=== PATIENT | male | born 1965 ===

== ENCOUNTER 2021-06-27 14:59 | Inpatient (IN) | payer MEDICAID, OTHER ==
[~2021-06-27] VITALS: Ht 188 cm; Wt 176.0 kg
[2021-06-27] MEDS ORDERED: FUROSEMIDE 40 MG/4 ML VIAL IV ONE (15:30)
[2021-06-27 16:02] LABS: Basophils # (auto) 0.1 10 ^3/uL (0-0.2); Basophils % (auto) 0.8 % (0.0-2.0); Eosinophils # (auto) 0.2 10 ^3/uL (0-0.8); Eosinophils % (auto) 1.4 % (0.0-7.0); Hematocrit 43.6 % (41.0-53.0); Hemoglobin 13.8 g/dL (13.5-17.5); Lymphocytes # (auto) 1.5 10 ^3/uL (0.4-5.4); Lymphocytes % (auto) 13.4 % (10.0-50.0); Mean Corpuscular Hemoglobin 29.6 pg (28.0-32.0); Mean Corpuscular Hgb Conc. 31.7 g/dL (32.0-36.0); Mean Corpuscular Volume 93.4 fL (80.0-100.0); Neutrophils # (auto) 8.3 10 ^3/uL (1.6-8.6); Neutrophils % (auto) 75.4 % (37.0-80.0); Nucleated Red Blood Cells % 0.3 %; Red Blood Cells 4.67 10^6/uL (4.5-5.90)
[2021-06-27 16:34] LABS: Albumin 2.6 g/dL (3.4-5.0); Potassium 4.5 mmol/L (3.5-5.1)
[2021-06-27 16:37] LABS: BUN/Creatinine Ratio 17.1; Bilirubin, Total 0.5 mg/dL (0.2-1.0); Total Protein 7.8 g/dL (6.4-8.2)
[2021-06-27 16:44] LABS: INR 1.2 (0.9-1.15); Partial Thromboplastin Time 25.7 sec (23.6-33.0)
[2021-06-27] MEDS ORDERED: ENOXAPARIN SOD 150 MG/1 ML SYRINGE SC ONE (17:00)
[2021-06-27 17:21] LABS: Urine Bacteria NONE SEEN /hpf (None Seen); Urine Blood Negative /uL (Negative); Urine Hyaline Cast FEW /lpf (0 - 2); Urine Mucus FEW (None Seen); Urine Specific Gravity 1.009 (1.001-1.035); Urine WBC <1 /hpf (0 - 3)
[2021-06-27] MEDS ORDERED: NITROGLYCERIN 0.4 MG SL TAB SL PRN (21:15)
[2021-06-27] MEDS ORDERED: ONDANSETRON HCL 4 MG/2 ML VIAL IV PRN (21:15)
[2021-06-27] MEDS ORDERED: TEMAZEPAM 15 MG CAP PO PRN (21:15)
[2021-06-27] MEDS ORDERED: MORPHINE SULFATE INJECTION 2 MG/ML SYRG IV PRN (21:15)
[2021-06-27] MEDS: ATORVASTATIN 20 MG TAB PO SCH (23:08)
[2021-06-28 03:23] VITALS: BP 128/89
[2021-06-28 05:00] VITALS: BP 98/50
[2021-06-28] MEDS: FUROSEMIDE 20 MG/2 ML VIAL IV SCH ×2 (05:42→18:22)
[2021-06-28 08:38] VITALS: BP 90/50
[2021-06-28 09:38] LABS: Basophils # (auto) 0.1 10 ^3/uL (0-0.2); Basophils % (auto) 0.9 % (0.0-2.0); Eosinophils # (auto) 0.2 10 ^3/uL (0-0.8); Eosinophils % (auto) 2.4 % (0.0-7.0); Hematocrit 41.7 % (41.0-53.0); Hemoglobin 13.5 g/dL (13.5-17.5); Lymphocytes # (auto) 1.1 10 ^3/uL (0.4-5.4); Lymphocytes % (auto) 11.2 % (10.0-50.0); Mean Corpuscular Hemoglobin 30.5 pg (28.0-32.0); Mean Corpuscular Hgb Conc. 32.4 g/dL (32.0-36.0); Mean Corpuscular Volume 94.1 fL (80.0-100.0); Monocytes # (auto) 0.7 10 ^3/uL (0-1.3); Monocytes % (auto) 7.7 % (0.0-12.0); Neutrophils # (auto) 7.3 10 ^3/uL (1.6-8.6); Neutrophils % (auto) 77.8 % (37.0-80.0); Nucleated Red Blood Cells % 0.1 %; Red Blood Cells 4.43 10^6/uL (4.5-5.90); Red Cell Distribution Width 17.5 % (11.8-14.3); White Blood Cell 9.4 10^3/uL (4.4-10.8)
[2021-06-28 09:50] LABS: Calcium 8.1 mg/dL (8.5-10.1); Potassium 4.3 mmol/L (3.5-5.1)
[2021-06-28 09:52] LABS: BUN/Creatinine Ratio 19.7
[2021-06-28] MEDS ORDERED: LISINOPRIL 10 MG TAB PO SCH (10:00)
[2021-06-28] MEDS ORDERED: ENOXAPARIN SOD 40 MG/0.4 ML SYRINGE SC SCH (10:00)
[2021-06-28 10:16] LABS: Cholesterol 134 mg/dL (< 200); HDL Cholesterol 25 mg/dL (40-59); LDL Cholesterol 90 mg/dL (< 100); Triglycerides 124 mg/dL (< 150)
[2021-06-28] MEDS: PANTOPRAZOLE 40 MG TAB PO SCH (10:27)
[2021-06-28] MEDS: ASPirin 81 mg TAB PO SCH (10:27)
[2021-06-28] MEDS: CARVEDILOL 3.125 MG TAB PO SCH ×2 (10:49→21:22)
[2021-06-28] MEDS: LISINOPRIL 5 MG TAB PO SCH (10:49)
[2021-06-28 12:58] VITALS: BP 119/75
[2021-06-28] MEDS ORDERED: IOHEXOL 350 MG/ML 100ML IJ ONE (15:06)
[2021-06-28 17:00] VITALS: BP 107/51
[2021-06-28] MEDS: ACETAMINOPHEN 325 MG TAB PO PRN (21:21)
[2021-06-28] MEDS: ATORVASTATIN 20 MG TAB PO SCH (21:21)
[2021-06-28 22:00] VITALS: BP 93/54
[2021-06-28] MEDS ORDERED: HEPARIN SODIUM (PORCINE) 5000 UNITS/ML 1ML VIAL IV ONE (23:00)
[2021-06-28] MEDS ORDERED: HEPARIN DRIP/D5W 100UNITS/ML 250 ML IV SCH (23:00)
[2021-06-28] MEDS ORDERED: HEPARIN DRIP/D5W 100UNITS/ML 250 ML IV ONE (23:18)
[2021-06-29 02:00] VITALS: BP 93/54
[2021-06-29 05:00] VITALS: BP 117/51
[2021-06-29] MEDS: FUROSEMIDE 20 MG/2 ML VIAL IV SCH ×2 (05:40→17:46)
[2021-06-29] MEDS: ACETAMINOPHEN 325 MG TAB PO PRN ×2 (05:41→20:49)
[2021-06-29 08:11] LABS: Basophils # (auto) 0 10 ^3/uL (0-0.2); Basophils % (auto) 0.5 % (0.0-2.0); Eosinophils # (auto) 0.1 10 ^3/uL (0-0.8); Eosinophils % (auto) 1.4 % (0.0-7.0); Hematocrit 43.1 % (41.0-53.0); Hemoglobin 13.7 g/dL (13.5-17.5); Lymphocytes # (auto) 0.8 10 ^3/uL (0.4-5.4); Lymphocytes % (auto) 9.5 % (10.0-50.0); Mean Corpuscular Hemoglobin 30.2 pg (28.0-32.0); Mean Corpuscular Hgb Conc. 31.9 g/dL (32.0-36.0); Mean Corpuscular Volume 94.7 fL (80.0-100.0); Monocytes # (auto) 0.5 10 ^3/uL (0-1.3); Monocytes % (auto) 6.9 % (0.0-12.0); Neutrophils # (auto) 6.5 10 ^3/uL (1.6-8.6); Neutrophils % (auto) 81.7 % (37.0-80.0); Nucleated Red Blood Cells % 0.1 %; Red Blood Cells 4.55 10^6/uL (4.5-5.90); Red Cell Distribution Width 16.9 % (11.8-14.3)
[2021-06-29 08:27] LABS: INR 1.16 (0.9-1.15)
[2021-06-29 08:35] LABS: BUN/Creatinine Ratio 21.2; Potassium 4.8 mmol/L (3.5-5.1)
[2021-06-29] MEDS: HEPARIN DRIP/D5W 100UNITS/ML 250 ML IV SCH ×4 (08:58→22:49)
[2021-06-29 09:00] VITALS: BP 102/63
[2021-06-29] MEDS: CHOLECALCIFEROL (VITD3) 2,000 UNIT CAP/TAB PO SCH (10:31)
[2021-06-29] MEDS: ASPirin 81 mg TAB PO SCH (10:31)
[2021-06-29] MEDS: PANTOPRAZOLE 40 MG TAB PO SCH (10:32)
[2021-06-29] MEDS: CARVEDILOL 3.125 MG TAB PO SCH ×2 (10:33→21:57)
[2021-06-29] MEDS: LISINOPRIL 5 MG TAB PO SCH (10:33)
[2021-06-29 13:00] VITALS: BP 96/55
[2021-06-29] MEDS ORDERED: levoFLOXacin 750MG 150 ML IV ONE (14:15)
[2021-06-29 16:07] LABS: INR 1.18 (0.9-1.15); Partial Thromboplastin Time 36.2 sec (23.6-33.0)
[2021-06-29] MEDS ORDERED: HEPARIN DRIP/D5W 100UNITS/ML 250 ML IV SCH (16:30)
[2021-06-29 17:00] VITALS: BP 110/57
[2021-06-29] MEDS: ATORVASTATIN 20 MG TAB PO SCH (21:57)
[2021-06-29 22:00] VITALS: BP 96/43
[2021-06-29 23:53] LABS: INR 1.2 (0.9-1.15); Partial Thromboplastin Time 39.9 sec (23.6-33.0)
[2021-06-30 04:56] VITALS: BP 95/52
[2021-06-30] MEDS: FUROSEMIDE 20 MG/2 ML VIAL IV SCH ×2 (05:54→17:13)
[2021-06-30 07:47] LABS: INR 1.18 (0.9-1.15); Partial Thromboplastin Time 48.1 sec (23.6-33.0)
[2021-06-30] MEDS: PANTOPRAZOLE 40 MG TAB PO SCH (08:58)
[2021-06-30] MEDS: ASPirin 81 mg TAB PO SCH (08:58)
[2021-06-30 09:00] VITALS: BP 110/69
[2021-06-30] MEDS: HEPARIN DRIP/D5W 100UNITS/ML 250 ML IV SCH (09:00)
[2021-06-30] MEDS: CHOLECALCIFEROL (VITD3) 2,000 UNIT CAP/TAB PO SCH (09:01)
[2021-06-30 09:13] LABS: Albumin 2.6 g/dL (3.4-5.0); Calcium 8.2 mg/dL (8.5-10.1); Potassium 4.8 mmol/L (3.5-5.1)
[2021-06-30] MEDS: levoFLOXacin 750MG 150 ML IV SCH (10:26)
[2021-06-30 11:42] LABS: Basophils # (auto) 0.1 10 ^3/uL (0-0.2); Basophils % (auto) 0.6 % (0.0-2.0); Eosinophils # (auto) 0.1 10 ^3/uL (0-0.8); Eosinophils % (auto) 1.2 % (0.0-7.0); Hematocrit 43.5 % (41.0-53.0); Hemoglobin 13.6 g/dL (13.5-17.5); Lymphocytes # (auto) 0.9 10 ^3/uL (0.4-5.4); Lymphocytes % (auto) 11.9 % (10.0-50.0); Mean Corpuscular Hemoglobin 29.8 pg (28.0-32.0); Mean Corpuscular Hgb Conc. 31.3 g/dL (32.0-36.0); Mean Corpuscular Volume 95.2 fL (80.0-100.0); Monocytes # (auto) 0.6 10 ^3/uL (0-1.3); Monocytes % (auto) 7.8 % (0.0-12.0); Neutrophils # (auto) 6.3 10 ^3/uL (1.6-8.6); Neutrophils % (auto) 78.5 % (37.0-80.0); Nucleated Red Blood Cells % 0.1 %; Red Blood Cells 4.57 10^6/uL (4.5-5.90); Red Cell Distribution Width 17.2 % (11.8-14.3)
[2021-06-30] MEDS: ALBUTEROL SULF 2.5 MG/0.5ML(0.5%) NEB SOLN NEB SCH ×3 (12:00→18:00)
[2021-06-30 13:00] VITALS: BP 102/62
[2021-06-30 15:12] LABS: INR 1.18 (0.9-1.15)
[2021-06-30 17:00] VITALS: BP 102/60
[2021-06-30] MEDS ORDERED: MORPHINE SULFATE 4 MG/ML SYR/VIAL IV ONE (19:30)
[2021-06-30] MEDS ORDERED: WARFARIN SODIUM 1 MG TAB PO ONE (21:15)
[2021-06-30] MEDS: ATORVASTATIN 20 MG TAB PO SCH (21:47)
[2021-06-30 22:00] VITALS: BP 115/61
[2021-07-01] VITALS (44 sets, daily range): BP systolic 89–194; BP diastolic 41–106
[2021-07-01] MEDS: ALBUTEROL SULF 2.5 MG/0.5ML(0.5%) NEB SOLN NEB SCH ×4 (00:36→18:03)
[2021-07-01] MEDS: HEPARIN DRIP/D5W 100UNITS/ML 250 ML IV SCH ×3 (02:47→15:35)
[2021-07-01] MEDS: FUROSEMIDE 20 MG/2 ML VIAL IV SCH ×2 (05:53→18:18)
[2021-07-01 06:21] LABS: Basophils # (auto) 0 10 ^3/uL (0-0.2); Basophils % (auto) 0.2 % (0.0-2.0); Eosinophils # (auto) 0 10 ^3/uL (0-0.8); Eosinophils % (auto) 0.3 % (0.0-7.0); Hematocrit 45.9 % (41.0-53.0); Hemoglobin 14.5 g/dL (13.5-17.5); Lymphocytes # (auto) 0.9 10 ^3/uL (0.4-5.4); Lymphocytes % (auto) 10.8 % (10.0-50.0); Mean Corpuscular Hemoglobin 30.6 pg (28.0-32.0); Mean Corpuscular Hgb Conc. 31.6 g/dL (32.0-36.0); Mean Corpuscular Volume 96.6 fL (80.0-100.0); Monocytes # (auto) 0.6 10 ^3/uL (0-1.3); Monocytes % (auto) 7.5 % (0.0-12.0); Neutrophils # (auto) 6.5 10 ^3/uL (1.6-8.6); Neutrophils % (auto) 81.2 % (37.0-80.0); Red Blood Cells 4.75 10^6/uL (4.5-5.90); Red Cell Distribution Width 17.1 % (11.8-14.3)
[2021-07-01 06:37] LABS: INR 1.18 (0.9-1.15)
[2021-07-01 06:38] LABS: Albumin 2.9 g/dL (3.4-5.0)
[2021-07-01] MEDS: PANTOPRAZOLE 40 MG TAB PO SCH (10:00)
[2021-07-01] MEDS: CHOLECALCIFEROL (VITD3) 2,000 UNIT CAP/TAB PO SCH (10:00)
[2021-07-01] MEDS ORDERED: FUROSEMIDE 20 MG/2 ML VIAL IV ONE (10:30)
[2021-07-01] MEDS: levoFLOXacin 750MG 150 ML IV SCH (11:16)
[2021-07-01] MEDS ORDERED: ETOMIDATE (2MG/ML) 20ML VIAL IV ONE (12:28)
[2021-07-01] MEDS ORDERED: SUCCINYLCHOLINE CHLORIDE 20 MG/ML 10ML VIAL IV ONE (12:29)
[2021-07-01] MEDS ORDERED: ROCURONIUM 10MG/ML 10ML VIAL IV ONE ×2 (12:41)
[2021-07-01 12:51] LABS: INR 1.24 (0.9-1.15); Partial Thromboplastin Time 63.8 sec (23.6-33.0)
[2021-07-01] MEDS ORDERED: DOPamine 1600MCG/ML D5W 250 ML IV ONE (13:53)
[2021-07-01] MEDS: PROPOFOL 100 ML IV SCH ×3 (15:21→19:21)
[2021-07-01] MEDS: NOREPINEPHRINE 8 MG/250ML KIT 250 ML IV SCH (15:22)
[2021-07-01] MEDS: MIDAZOLAM DRIP 50 mg/50mL 50 ML IV SCH ×2 (15:23→16:58)
[2021-07-01] MEDS: fentaNYL Drip 2500mCg/250mlNS 250 ML IV SCH (15:26)
[2021-07-01] MEDS: DOPamine 1600MCG/ML D5W 250 ML IV SCH ×2 (16:30→23:27)
[2021-07-01] MEDS ORDERED: WARFARIN SODIUM 10 MG TAB PO ONE (17:00)
[2021-07-01 17:37] LABS: INR 1.22 (0.9-1.15); Partial Thromboplastin Time 46.4 sec (23.6-33.0)
[2021-07-01] MEDS: ATORVASTATIN 20 MG TAB PO SCH (22:00)
[2021-07-02] VITALS (80 sets, daily range): BP systolic 87–139; BP diastolic 43–86
[2021-07-02] MEDS: ALBUTEROL SULF 2.5 MG/0.5ML(0.5%) NEB SOLN NEB SCH ×4 (00:35→18:23)
[2021-07-02 01:25] LABS: INR 1.31 (0.9-1.15)
[2021-07-02 04:58] LABS: Basophils # (auto) 0 10 ^3/uL (0-0.2); Basophils % (auto) 0.2 % (0.0-2.0); Eosinophils # (auto) 0 10 ^3/uL (0-0.8); Eosinophils % (auto) 0.4 % (0.0-7.0); Hematocrit 45.9 % (41.0-53.0); Hemoglobin 14.5 g/dL (13.5-17.5); Lymphocytes # (auto) 0.7 10 ^3/uL (0.4-5.4); Lymphocytes % (auto) 6.9 % (10.0-50.0); Mean Corpuscular Hemoglobin 29.7 pg (28.0-32.0); Mean Corpuscular Hgb Conc. 31.6 g/dL (32.0-36.0); Monocytes # (auto) 0.7 10 ^3/uL (0-1.3); Neutrophils # (auto) 8.4 10 ^3/uL (1.6-8.6); Neutrophils % (auto) 85.5 % (37.0-80.0); Red Blood Cells 4.88 10^6/uL (4.5-5.90); Red Cell Distribution Width 16.2 % (11.8-14.3); White Blood Cell 9.8 10^3/uL (4.4-10.8)
[2021-07-02 05:25] LABS: Albumin 2.6 g/dL (3.4-5.0); Calcium 8.5 mg/dL (8.5-10.1); Potassium 3.8 mmol/L (3.5-5.1)
[2021-07-02 05:29] LABS: BUN/Creatinine Ratio 17.5; Total Protein 7.2 g/dL (6.4-8.2)
[2021-07-02] MEDS: FUROSEMIDE 20 MG/2 ML VIAL IV SCH ×2 (06:00→18:00)
[2021-07-02] MEDS: DOPamine 1600MCG/ML D5W 250 ML IV SCH (06:24)
[2021-07-02] MEDS: HEPARIN DRIP/D5W 100UNITS/ML 250 ML IV SCH ×2 (07:35→15:33)
[2021-07-02] MEDS: CHOLECALCIFEROL (VITD3) 2,000 UNIT CAP/TAB PO SCH (09:35)
[2021-07-02] MEDS: POTASSIUM EFFERVESENT TAB 25 MEQ GT SCH (09:35)
[2021-07-02] MEDS: PANTOPRAZOLE 40 MG TAB PO SCH (09:35)
[2021-07-02] MEDS: PROPOFOL 100 ML IV SCH ×5 (09:36→17:40)
[2021-07-02] MEDS: MIDAZOLAM DRIP 50 mg/50mL 50 ML IV SCH ×3 (09:36→17:07)
[2021-07-02] MEDS ORDERED: Jevity 1.2 Cal/Fiber 1 Liter GT SCH ×2 (09:45→10:45)
[2021-07-02 10:25] LABS: INR 1.33 (0.9-1.15); Partial Thromboplastin Time 46.9 sec (23.6-33.0)
[2021-07-02 11:19] LABS: Magnesium 2.5 mg/dL (1.6-2.6); Phosphorus 1.1 mg/dL (2.5-4.90)
[2021-07-02] MEDS ORDERED: POTASSIUM PHOSPHATE 44 MEQ in D5W 5% 250 ML IV ONE (11:45)
[2021-07-02] MEDS: NOREPINEPHRINE 8 MG/250ML KIT 250 ML IV SCH (12:15)
[2021-07-02] MEDS: ACETYLCYSTEINE 10 %(100MG/ML) SOL 4ML NEB SCH ×2 (12:33→18:24)
[2021-07-02] MEDS: fentaNYL Drip 2500mCg/250mlNS 250 ML IV SCH (13:52)
[2021-07-02] MEDS: CEFEPIME 1 GM in SODIUM CHL 0.9% 50 ML IV SCH ×2 (13:55→21:31)
[2021-07-02] MEDS: ACETAMINOPHEN 325 MG TAB PO PRN (14:50)
[2021-07-02] MEDS ORDERED: WARFARIN SODIUM 10 MG TAB PO ONE (17:00)
[2021-07-02 18:58] LABS: INR 1.36 (0.9-1.15); Partial Thromboplastin Time 48.5 sec (23.6-33.0)
[2021-07-02] MEDS: ATORVASTATIN 20 MG TAB PO SCH (21:31)
[2021-07-03] VITALS (101 sets, daily range): BP systolic 59–187; BP diastolic 24–97
[2021-07-03] MEDS: PROPOFOL 100 ML IV SCH ×6 (00:03→19:50)
[2021-07-03] MEDS: HEPARIN DRIP/D5W 100UNITS/ML 250 ML IV SCH ×3 (00:27→18:11)
[2021-07-03] MEDS: ACETYLCYSTEINE 10 %(100MG/ML) SOL 4ML NEB SCH ×4 (00:30→19:51)
[2021-07-03] MEDS: ALBUTEROL SULF 2.5 MG/0.5ML(0.5%) NEB SOLN NEB SCH ×4 (00:30→19:52)
[2021-07-03] MEDS: fentaNYL Drip 2500mCg/250mlNS 250 ML IV SCH ×2 (01:31→12:42)
[2021-07-03] MEDS: DOPamine 1600MCG/ML D5W 250 ML IV SCH ×4 (03:15→15:20)
[2021-07-03] MEDS: MIDAZOLAM DRIP 50 mg/50mL 50 ML IV SCH ×5 (03:50→19:50)
[2021-07-03] MEDS: FUROSEMIDE 20 MG/2 ML VIAL IV SCH ×2 (05:29→18:16)
[2021-07-03] MEDS: CEFEPIME 1 GM in SODIUM CHL 0.9% 50 ML IV SCH ×3 (05:33→22:05)
[2021-07-03 06:17] LABS: Basophils # (auto) 0.1 10 ^3/uL (0-0.2); Basophils % (auto) 0.6 % (0.0-2.0); Eosinophils # (auto) 0 10 ^3/uL (0-0.8); Eosinophils % (auto) 0.3 % (0.0-7.0); Hematocrit 47.8 % (41.0-53.0); Hemoglobin 15.1 g/dL (13.5-17.5); Lymphocytes # (auto) 0.6 10 ^3/uL (0.4-5.4); Lymphocytes % (auto) 5.3 % (10.0-50.0); Mean Corpuscular Hemoglobin 29.7 pg (28.0-32.0); Mean Corpuscular Hgb Conc. 31.7 g/dL (32.0-36.0); Mean Corpuscular Volume 93.9 fL (80.0-100.0); Monocytes # (auto) 0.9 10 ^3/uL (0-1.3); Monocytes % (auto) 8.2 % (0.0-12.0); Neutrophils # (auto) 9.5 10 ^3/uL (1.6-8.6); Neutrophils % (auto) 85.6 % (37.0-80.0); Red Blood Cells 5.09 10^6/uL (4.5-5.90); Red Cell Distribution Width 16.9 % (11.8-14.3)
[2021-07-03 06:35] LABS: INR 1.35 (0.9-1.15); Partial Thromboplastin Time 46.7 sec (23.6-33.0)
[2021-07-03 06:39] LABS: Calcium 8.7 mg/dL (8.5-10.1); Potassium 3.5 mmol/L (3.5-5.1)
[2021-07-03 06:42] LABS: BUN/Creatinine Ratio 11.8
[2021-07-03] MEDS: POTASSIUM EFFERVESENT TAB 25 MEQ GT SCH ×2 (10:00→10:06)
[2021-07-03] MEDS: PANTOPRAZOLE 40 MG TAB PO SCH ×2 (10:00→10:06)
[2021-07-03] MEDS: CHOLECALCIFEROL (VITD3) 2,000 UNIT CAP/TAB PO SCH (10:07)
[2021-07-03] MEDS: NOREPINEPHRINE 8 MG/250ML KIT 250 ML IV SCH (12:15)
[2021-07-03 17:27] LABS: INR 1.33 (0.9-1.15); Partial Thromboplastin Time 57.3 sec (23.6-33.0)
[2021-07-03] MEDS: ATORVASTATIN 20 MG TAB PO SCH (22:04)
[2021-07-03 23:34] LABS: INR 1.32 (0.9-1.15); Partial Thromboplastin Time 56.9 sec (23.6-33.0)
[2021-07-04] VITALS (98 sets, daily range): BP systolic 58–137; BP diastolic 34–96
[2021-07-04] MEDS: DOPamine 1600MCG/ML D5W 250 ML IV SCH ×5 (00:06→20:57)
[2021-07-04] MEDS: ALBUTEROL SULF 2.5 MG/0.5ML(0.5%) NEB SOLN NEB SCH ×4 (02:23→18:22)
[2021-07-04] MEDS: ACETYLCYSTEINE 10 %(100MG/ML) SOL 4ML NEB SCH ×4 (02:23→18:23)
[2021-07-04 04:00] LABS: Basophils # (auto) 0.1 10 ^3/uL (0-0.2); Basophils % (auto) 0.7 % (0.0-2.0); Eosinophils # (auto) 0.2 10 ^3/uL (0-0.8); Lymphocytes # (auto) 1.5 10 ^3/uL (0.4-5.4)
[2021-07-04 04:04] LABS: Hematocrit 51.9 % (41.0-53.0); Lymphocytes % (auto) 14.2 % (10.0-50.0); Mean Corpuscular Hemoglobin 29.3 pg (28.0-32.0); Mean Corpuscular Hgb Conc. 30.9 g/dL (32.0-36.0); Monocytes # (auto) 0.8 10 ^3/uL (0-1.3); Monocytes % (auto) 7.3 % (0.0-12.0); Neutrophils # (auto) 7.8 10 ^3/uL (1.6-8.6); Neutrophils % (auto) 75.8 % (37.0-80.0); Nucleated Red Blood Cells % 0.1 %; Red Blood Cells 5.46 10^6/uL (4.5-5.90); Red Cell Distribution Width 17.9 % (11.8-14.3); White Blood Cell 10.3 10^3/uL (4.4-10.8)
[2021-07-04 04:23] LABS: BUN/Creatinine Ratio 10.8; Calcium 8.7 mg/dL (8.5-10.1); Potassium 3.3 mmol/L (3.5-5.1)
[2021-07-04 04:26] LABS: INR 1.31 (0.9-1.15); Partial Thromboplastin Time 49.7 sec (23.6-33.0)
[2021-07-04] MEDS: CEFEPIME 1 GM in SODIUM CHL 0.9% 50 ML IV SCH ×3 (06:18→21:26)
[2021-07-04] MEDS: PROPOFOL 100 ML IV SCH ×5 (07:21→18:00)
[2021-07-04] MEDS: HEPARIN DRIP/D5W 100UNITS/ML 250 ML IV SCH ×2 (08:45→16:43)
[2021-07-04] MEDS: MIDAZOLAM DRIP 50 mg/50mL 50 ML IV SCH ×3 (08:59→16:53)
[2021-07-04] MEDS: D5W 5% 1,000 ML IV SCH ×2 (09:20→22:55)
[2021-07-04] MEDS: POTASSIUM CHL 20MEQ/100ML 100 ML IV SCH ×3 (09:33→14:34)
[2021-07-04] MEDS ORDERED: FREE WATER GT SCH (10:00)
[2021-07-04] MEDS: FUROSEMIDE 20 MG/2 ML VIAL IV SCH ×2 (10:00→10:27)
[2021-07-04] MEDS: POTASSIUM EFFERVESENT TAB 25 MEQ GT SCH (10:00)
[2021-07-04] MEDS: CHOLECALCIFEROL (VITD3) 2,000 UNIT CAP/TAB PO SCH (10:00)
[2021-07-04] MEDS ORDERED: PANTOPRAZOLE 40 MG/10 ML VIAL INJ IV ONE (10:30)
[2021-07-04] MEDS: NOREPINEPHRINE 8 MG/250ML KIT 250 ML IV SCH ×2 (12:15→19:06)
[2021-07-04 12:29] LABS: INR 1.3 (0.9-1.15); Partial Thromboplastin Time 50.6 sec (23.6-33.0)
[2021-07-04] MEDS: fentaNYL Drip 2500mCg/250mlNS 250 ML IV SCH (12:33)
[2021-07-04] MEDS ORDERED: PANTOPRAZOLE 40mg/50ML NS AE 50 ML IV SCH (15:15)
[2021-07-04] MEDS: PANTOPRAZOLE 40mg/50ML NS AE 50 ML IV SCH ×2 (15:30→20:30)
[2021-07-04] MEDS: ATORVASTATIN 20 MG TAB PO SCH (21:28)
[2021-07-05] VITALS (95 sets, daily range): BP systolic 60–141; BP diastolic 36–85
[2021-07-05] MEDS: ACETYLCYSTEINE 10 %(100MG/ML) SOL 4ML NEB SCH ×4 (00:17→18:23)
[2021-07-05] MEDS: ALBUTEROL SULF 2.5 MG/0.5ML(0.5%) NEB SOLN NEB SCH ×4 (00:17→18:22)
[2021-07-05] MEDS: fentaNYL Drip 2500mCg/250mlNS 250 ML IV SCH (00:55)
[2021-07-05] MEDS: HEPARIN DRIP/D5W 100UNITS/ML 250 ML IV SCH (00:56)
[2021-07-05] MEDS: PANTOPRAZOLE 40mg/50ML NS AE 50 ML IV SCH ×5 (02:13→21:58)
[2021-07-05 03:52] LABS: INR 1.27 (0.9-1.15); Partial Thromboplastin Time 47.8 sec (23.6-33.0)
[2021-07-05] MEDS: DOPamine 1600MCG/ML D5W 250 ML IV SCH ×2 (03:54→11:08)
[2021-07-05 04:16] LABS: Basophils # (auto) 0.1 10 ^3/uL (0-0.2); Lymphocytes # (auto) 1.3 10 ^3/uL (0.4-5.4); Monocytes # (auto) 1.1 10 ^3/uL (0-1.3)
[2021-07-05 04:18] LABS: Basophils % (auto) 0.8 % (0.0-2.0); Eosinophils # (auto) 0.6 10 ^3/uL (0-0.8); Hematocrit 50.9 % (41.0-53.0); Hemoglobin 15.9 g/dL (13.5-17.5); Lymphocytes % (auto) 10.4 % (10.0-50.0); Mean Corpuscular Hemoglobin 29.8 pg (28.0-32.0); Mean Corpuscular Hgb Conc. 31.2 g/dL (32.0-36.0); Mean Corpuscular Volume 95.4 fL (80.0-100.0); Monocytes % (auto) 8.5 % (0.0-12.0); Neutrophils # (auto) 9.6 10 ^3/uL (1.6-8.6); Neutrophils % (auto) 75.3 % (37.0-80.0); Nucleated Red Blood Cells % 0.3 %; Red Blood Cells 5.34 10^6/uL (4.5-5.90); Red Cell Distribution Width 18.7 % (11.8-14.3); White Blood Cell 12.8 10^3/uL (4.4-10.8)
[2021-07-05] MEDS: CEFEPIME 1 GM in SODIUM CHL 0.9% 50 ML IV SCH ×3 (05:22→22:20)
[2021-07-05] MEDS: PROPOFOL 100 ML IV SCH (07:00)
[2021-07-05] MEDS: POTASSIUM EFFERVESENT TAB 25 MEQ GT SCH (09:38)
[2021-07-05] MEDS: FUROSEMIDE 20 MG/2 ML VIAL IV SCH (09:39)
[2021-07-05] MEDS: CHOLECALCIFEROL (VITD3) 2,000 UNIT CAP/TAB PO SCH (09:40)
[2021-07-05] MEDS ORDERED: PANTOPRAZOLE 40 MG/10 ML VIAL INJ IV SCH (10:00)
[2021-07-05 10:37] LABS: INR 1.29 (0.9-1.15); Partial Thromboplastin Time 39.3 sec (23.6-33.0)
[2021-07-05 10:37] LABS: BUN/Creatinine Ratio 7.8; Calcium 9.2 mg/dL (8.5-10.1); Phosphorus 4.1 mg/dL (2.5-4.90); Potassium 3.5 mmol/L (3.5-5.1)
[2021-07-05] MEDS: D5W 5% 1,000 ML IV SCH ×4 (11:09→19:50)
[2021-07-05] MEDS ORDERED: VASOPRESSIN 50 UNITS in D5W 5% 247.5 ML IV SCH (12:00)
[2021-07-05] MEDS ORDERED: PHENYLEPHRINE INJ 40 MG in SODIUM CHL 0.9% 246 ML IV SCH (14:15)
[2021-07-05] MEDS: VASOPRESSIN 50 UNITS in D5W 5% 247.5 ML IV SCH (15:51)
[2021-07-05] MEDS: LINEZOLID 600MG/300ML 300 ML IV SCH (16:00)
[2021-07-05] MEDS: NOREPINEPHRINE 8 MG/250ML KIT 250 ML IV SCH (17:30)
[2021-07-05] MEDS ORDERED: DESMOPRESSIN ACET 4 MCG/1 ML AMPULE IV ONE (17:45)
[2021-07-05] MEDS ORDERED: MANNITOL IV SCH (22:00)
[2021-07-06] VITALS (86 sets, daily range): BP systolic 84–149; BP diastolic 46–88
[2021-07-06] MEDS: ALBUTEROL SULF 2.5 MG/0.5ML(0.5%) NEB SOLN NEB SCH ×4 (00:20→20:08)
[2021-07-06] MEDS: ACETYLCYSTEINE 10 %(100MG/ML) SOL 4ML NEB SCH ×4 (00:20→20:08)
[2021-07-06 01:12] LABS: BUN/Creatinine Ratio 8.5; Calcium 7.4 mg/dL (8.5-10.1); Potassium 3.9 mmol/L (3.5-5.1)
[2021-07-06] MEDS: PANTOPRAZOLE 40mg/50ML NS AE 50 ML IV SCH ×5 (02:30→23:03)
[2021-07-06 03:11] LABS: Basophils # (auto) 0.1 10 ^3/uL (0-0.2)
[2021-07-06 03:12] LABS: Basophils % (auto) 0.8 % (0.0-2.0); Eosinophils # (auto) 0.3 10 ^3/uL (0-0.8); Eosinophils % (auto) 2.3 % (0.0-7.0); Hematocrit 46.9 % (41.0-53.0); Hemoglobin 14.1 g/dL (13.5-17.5); Lymphocytes # (auto) 0.7 10 ^3/uL (0.4-5.4); Lymphocytes % (auto) 5.4 % (10.0-50.0); Mean Corpuscular Hemoglobin 28.9 pg (28.0-32.0); Mean Corpuscular Volume 96.2 fL (80.0-100.0); Monocytes # (auto) 1.2 10 ^3/uL (0-1.3); Monocytes % (auto) 8.7 % (0.0-12.0); Neutrophils # (auto) 11.2 10 ^3/uL (1.6-8.6); Neutrophils % (auto) 82.8 % (37.0-80.0); Nucleated Red Blood Cells % 0.1 %; Red Blood Cells 4.88 10^6/uL (4.5-5.90); Red Cell Distribution Width 18.4 % (11.8-14.3); White Blood Cell 13.6 10^3/uL (4.4-10.8)
[2021-07-06 03:25] LABS: BUN/Creatinine Ratio 7.7; Calcium 8.1 mg/dL (8.5-10.1); Potassium 4.1 mmol/L (3.5-5.1)
[2021-07-06] MEDS: MANNITOL IV SCH ×2 (06:14→13:10)
[2021-07-06] MEDS: CEFEPIME 1 GM in SODIUM CHL 0.9% 50 ML IV SCH ×3 (06:15→23:02)
[2021-07-06] MEDS: LINEZOLID 600MG/300ML 300 ML IV SCH ×2 (06:21→17:22)
[2021-07-06] MEDS ORDERED: DESMOPRESSIN ACET 4 MCG/1 ML AMPULE IV ONE (09:00)
[2021-07-06] MEDS: D5W 5% 1,000 ML IV SCH (09:30)
[2021-07-06] MEDS: CHOLECALCIFEROL (VITD3) 2,000 UNIT CAP/TAB PO SCH (09:48)
[2021-07-06] MEDS: fentaNYL Drip 2500mCg/250mlNS 250 ML IV SCH (10:39)
[2021-07-06] MEDS: MIDAZOLAM DRIP 50 mg/50mL 50 ML IV SCH (10:39)
[2021-07-06] MEDS: PROPOFOL 100 ML IV SCH (10:39)
[2021-07-06 11:18] LABS: Urine Bacteria NONE SEEN /hpf (None Seen); Urine Blood 3+ /uL (Negative); Urine Mucus FEW (None Seen); Urine Specific Gravity 1.032 (1.001-1.035); Urine WBC 6 /hpf (0 - 3)
[2021-07-06] MEDS: NOREPINEPHRINE 8 MG/250ML KIT 250 ML IV SCH (13:12)
[2021-07-06] MEDS: VASOPRESSIN 50 UNITS in D5W 5% 247.5 ML IV SCH (15:45)
[2021-07-06 15:48] LABS: Basophils # (auto) 0.1 10 ^3/uL (0-0.2); Lymphocytes # (auto) 0.7 10 ^3/uL (0.4-5.4); Monocytes # (auto) 1.2 10 ^3/uL (0-1.3)
[2021-07-06 15:50] LABS: Basophils % (auto) 0.5 % (0.0-2.0); Nucleated Red Blood Cells % 0.1 %
[2021-07-06 15:54] LABS: Eosinophils # (auto) 0.2 10 ^3/uL (0-0.8); Eosinophils % (auto) 1.2 % (0.0-7.0); Hemoglobin 13.7 g/dL (13.5-17.5); Lymphocytes % (auto) 4.8 % (10.0-50.0); Mean Corpuscular Hemoglobin 29.2 pg (28.0-32.0); Mean Corpuscular Hgb Conc. 30.4 g/dL (32.0-36.0); Monocytes % (auto) 8.5 % (0.0-12.0); Neutrophils # (auto) 12.2 10 ^3/uL (1.6-8.6); Red Blood Cells 4.68 10^6/uL (4.5-5.90); Red Cell Distribution Width 18.3 % (11.8-14.3); White Blood Cell 14.3 10^3/uL (4.4-10.8)
[2021-07-06] MEDS: SODIUM CHLORIDE 0.9% 1,000 ML IV SCH (20:15)
[2021-07-06] MEDS ORDERED: DESMOPRESSIN ACET 4 MCG/1 ML AMPULE IV SCH (22:00)
[2021-07-07] VITALS (101 sets, daily range): BP systolic 89–189; BP diastolic 52–111
[2021-07-07] MEDS: ALBUTEROL SULF 2.5 MG/0.5ML(0.5%) NEB SOLN NEB SCH ×4 (01:07→19:49)
[2021-07-07] MEDS: ACETYLCYSTEINE 10 %(100MG/ML) SOL 4ML NEB SCH ×4 (01:07→19:49)
[2021-07-07] MEDS: PANTOPRAZOLE 40mg/50ML NS AE 50 ML IV SCH ×3 (03:30→14:40)
[2021-07-07] MEDS: LINEZOLID 600MG/300ML 300 ML IV SCH (04:19)
[2021-07-07 04:39] LABS: Basophils # (auto) 0.1 10 ^3/uL (0-0.2); Eosinophils # (auto) 0.1 10 ^3/uL (0-0.8)
[2021-07-07 04:41] LABS: Basophils % (auto) 0.5 % (0.0-2.0); Eosinophils % (auto) 0.7 % (0.0-7.0); Hemoglobin 13.5 g/dL (13.5-17.5); Lymphocytes % (auto) 7.1 % (10.0-50.0); Mean Corpuscular Hemoglobin 29.5 pg (28.0-32.0); Mean Corpuscular Volume 98.2 fL (80.0-100.0); Monocytes # (auto) 1.2 10 ^3/uL (0-1.3); Monocytes % (auto) 8.2 % (0.0-12.0); Neutrophils # (auto) 12.1 10 ^3/uL (1.6-8.6); Neutrophils % (auto) 83.5 % (37.0-80.0); Nucleated Red Blood Cells % 0.2 %; Red Blood Cells 4.59 10^6/uL (4.5-5.90); Red Cell Distribution Width 18.9 % (11.8-14.3); White Blood Cell 14.5 10^3/uL (4.4-10.8)
[2021-07-07 05:00] LABS: BUN/Creatinine Ratio 9.4; Calcium 8.8 mg/dL (8.5-10.1); Potassium 4.1 mmol/L (3.5-5.1)
[2021-07-07] MEDS: SODIUM CHLORIDE 0.9% 1,000 ML IV SCH ×2 (06:19→16:15)
[2021-07-07] MEDS: CEFEPIME 1 GM in SODIUM CHL 0.9% 50 ML IV SCH ×3 (06:19→21:33)
[2021-07-07] MEDS: PROPOFOL 100 ML IV SCH (07:11)
[2021-07-07] MEDS: CHOLECALCIFEROL (VITD3) 2,000 UNIT CAP/TAB PO SCH (11:21)
[2021-07-07] MEDS ORDERED: DESMOPRESSIN ACET 4 MCG/1 ML AMPULE IV SCH (11:45)
[2021-07-07] MEDS: MIDAZOLAM DRIP 50 mg/50mL 50 ML IV SCH (12:15)
[2021-07-07] MEDS: fentaNYL Drip 2500mCg/250mlNS 250 ML IV SCH (12:15)
[2021-07-07] MEDS: VASOPRESSIN 50 UNITS in D5W 5% 247.5 ML IV SCH (14:41)
[2021-07-07] MEDS: PANTOPRAZOLE 40 MG/10 ML VIAL INJ IV SCH (21:33)
[2021-07-08] VITALS (103 sets, daily range): BP systolic 88–154; BP diastolic 52–102
[2021-07-08] MEDS: ALBUTEROL SULF 2.5 MG/0.5ML(0.5%) NEB SOLN NEB SCH ×2 (00:12→13:38)
[2021-07-08] MEDS: ACETYLCYSTEINE 10 %(100MG/ML) SOL 4ML NEB SCH ×3 (00:12→12:00)
[2021-07-08] MEDS: VASOPRESSIN 50 UNITS in D5W 5% 247.5 ML IV SCH ×3 (00:13→15:56)
[2021-07-08] MEDS: PROPOFOL 100 ML IV SCH (00:33)
[2021-07-08 03:54] LABS: Basophils # (auto) 0.1 10 ^3/uL (0-0.2); Basophils % (auto) 0.8 % (0.0-2.0); Eosinophils # (auto) 0.3 10 ^3/uL (0-0.8); Hemoglobin 12.2 g/dL (13.5-17.5); Monocytes # (auto) 0.9 10 ^3/uL (0-1.3)
[2021-07-08 03:56] LABS: Eosinophils % (auto) 3.3 % (0.0-7.0); Hematocrit 40.3 % (41.0-53.0); Lymphocytes # (auto) 0.8 10 ^3/uL (0.4-5.4); Lymphocytes % (auto) 9.6 % (10.0-50.0); Mean Corpuscular Hgb Conc. 30.2 g/dL (32.0-36.0); Mean Corpuscular Volume 99.5 fL (80.0-100.0); Monocytes % (auto) 10.8 % (0.0-12.0); Neutrophils # (auto) 6.7 10 ^3/uL (1.6-8.6); Neutrophils % (auto) 75.5 % (37.0-80.0); Nucleated Red Blood Cells % 0.1 %; Red Blood Cells 4.05 10^6/uL (4.5-5.90); Red Cell Distribution Width 18.5 % (11.8-14.3); White Blood Cell 8.8 10^3/uL (4.4-10.8)
[2021-07-08 04:26] LABS: BUN/Creatinine Ratio 15.4; Potassium 3.6 mmol/L (3.5-5.1)
[2021-07-08] MEDS: CEFEPIME 1 GM in SODIUM CHL 0.9% 50 ML IV SCH ×2 (07:09→15:33)
[2021-07-08] MEDS: fentaNYL Drip 2500mCg/250mlNS 250 ML IV SCH (07:22)
[2021-07-08] MEDS: PANTOPRAZOLE 40 MG/10 ML VIAL INJ IV SCH (10:23)
[2021-07-08] MEDS: NOREPINEPHRINE 8 MG/250ML KIT 250 ML IV SCH ×2 (12:15→15:53)
[2021-07-08] MEDS: MIDAZOLAM DRIP 50 mg/50mL 50 ML IV SCH (12:15)
[2021-07-08] MEDS ORDERED: MORPHINE SULFATE INJECTION 2 MG/ML SYRG IV PRN (16:00)
[2021-07-08] MEDS ORDERED: LORazepam 2MG/ML-1ML VIAL IV PRN (16:00)
[2021-07-08 23:06] LABS: Basophils # (auto) 0 10 ^3/uL (0-0.2); Basophils % (auto) 0.4 % (0.0-2.0); Eosinophils # (auto) 0.5 10 ^3/uL (0-0.8); Hematocrit 40.2 % (41.0-53.0); Hemoglobin 12.3 g/dL (13.5-17.5); Lymphocytes % (auto) 10.9 % (10.0-50.0); Mean Corpuscular Hemoglobin 29.8 pg (28.0-32.0); Mean Corpuscular Hgb Conc. 30.7 g/dL (32.0-36.0); Mean Corpuscular Volume 97.1 fL (80.0-100.0); Monocytes # (auto) 1.1 10 ^3/uL (0-1.3); Monocytes % (auto) 11.6 % (0.0-12.0); Neutrophils # (auto) 6.8 10 ^3/uL (1.6-8.6); Neutrophils % (auto) 72.1 % (37.0-80.0); Nucleated Red Blood Cells % 0.2 %; Red Blood Cells 4.15 10^6/uL (4.5-5.90); White Blood Cell 9.4 10^3/uL (4.4-10.8)
[2021-07-08 23:15] LABS: Albumin 1.8 g/dL (3.4-5.0); BUN/Creatinine Ratio 22.7; Bilirubin, Direct 0.5 mg/dL (0-0.2); Calcium 8.8 mg/dL (8.5-10.1); Magnesium 2.7 mg/dL (1.6-2.6); Potassium 3.8 mmol/L (3.5-5.1)
[2021-07-08 23:45] LABS: Phosphorus 3.7 mg/dL (2.5-4.90)
[2021-07-08 23:56] LABS: Bilirubin, Total 0.9 mg/dL (0.2-1.0)
[2021-07-09] VITALS (71 sets, daily range): BP systolic 81–174; BP diastolic 37–102
[2021-07-09 01:20] LABS: INR 1.26 (0.9-1.15); Partial Thromboplastin Time 28.8 sec (23.6-33.0)
[2021-07-09 01:24] LABS: Amylase 24 U/L (25-115); Lipase 79 U/L (73-393)
[2021-07-09 01:28] LABS: Cholesterol 121 mg/dL (< 200); HDL Cholesterol 13 mg/dL (40-59); LDL Cholesterol 63 mg/dL (< 100); Triglycerides 258 mg/dL (< 150)
[2021-07-09] MEDS: VASOPRESSIN 50 UNITS in D5W 5% 247.5 ML IV SCH (02:06)
[2021-07-09 03:30] LABS: Urine Bacteria FEW /hpf (None Seen); Urine Blood 3+ /uL (Negative); Urine Mucus MANY (None Seen); Urine Specific Gravity 1.035 (1.001-1.035); Urine WBC 8 /hpf (0 - 3)
[2021-07-09 06:55] LABS: Basophils # (auto) 0.1 10 ^3/uL (0-0.2); Basophils % (auto) 0.8 % (0.0-2.0); Eosinophils # (auto) 0.4 10 ^3/uL (0-0.8); Eosinophils % (auto) 4.8 % (0.0-7.0); Hematocrit 38.9 % (41.0-53.0); Hemoglobin 12.2 g/dL (13.5-17.5); Lymphocytes # (auto) 0.9 10 ^3/uL (0.4-5.4); Lymphocytes % (auto) 10.6 % (10.0-50.0); Mean Corpuscular Hemoglobin 30.3 pg (28.0-32.0); Mean Corpuscular Hgb Conc. 31.3 g/dL (32.0-36.0); Mean Corpuscular Volume 96.9 fL (80.0-100.0); Monocytes # (auto) 0.9 10 ^3/uL (0-1.3); Monocytes % (auto) 10.8 % (0.0-12.0); Neutrophils # (auto) 6.4 10 ^3/uL (1.6-8.6); Nucleated Red Blood Cells % 0.2 %; Red Blood Cells 4.01 10^6/uL (4.5-5.90); White Blood Cell 8.7 10^3/uL (4.4-10.8)
[2021-07-09 07:07] LABS: INR 1.25 (0.9-1.15); Partial Thromboplastin Time 28.9 sec (23.6-33.0)
[2021-07-09 07:31] LABS: Magnesium 2.7 mg/dL (1.6-2.6)
[2021-07-09 07:38] LABS: Albumin 1.9 g/dL (3.4-5.0); BUN/Creatinine Ratio 28.2; Bilirubin, Direct 0.6 mg/dL (0-0.2); Calcium 8.6 mg/dL (8.5-10.1); Phosphorus 4.1 mg/dL (2.5-4.90); Total Protein 6.9 g/dL (6.4-8.2)
[2021-07-09] MEDS ORDERED: HEPARIN SODIUM (PORCINE) 5000 UNITS/ML 1ML VIAL IV ONE (09:30)
[2021-07-09 16:00] LABS: INR 1.23 (0.9-1.15); Partial Thromboplastin Time 28.4 sec (23.6-33.0)
[2021-07-09 16:07] LABS: Amylase 31 U/L (25-115); Calcium 8.8 mg/dL (8.5-10.1); Lipase 132 U/L (73-393); Magnesium 2.6 mg/dL (1.6-2.6); Potassium 3.8 mmol/L (3.5-5.1)
[2021-07-09 16:10] LABS: Cholesterol 121 mg/dL (< 200); HDL Cholesterol 12 mg/dL (40-59); LDL Cholesterol 69 mg/dL (< 100); Triglycerides 282 mg/dL (< 150)
[2021-07-09 16:11] LABS: BUN/Creatinine Ratio 28.8; Bilirubin, Total 1.3 mg/dL (0.2-1.0); Phosphorus 4.4 mg/dL (2.5-4.90); Total Protein 6.9 g/dL (6.4-8.2)
[2021-07-09 16:49] LABS: Basophils # (auto) 0.1 10 ^3/uL (0-0.2); Basophils % (auto) 0.6 % (0.0-2.0); Eosinophils # (auto) 0.5 10 ^3/uL (0-0.8); Eosinophils % (auto) 4.9 % (0.0-7.0); Hematocrit 39.2 % (41.0-53.0); Lymphocytes # (auto) 0.9 10 ^3/uL (0.4-5.4); Mean Corpuscular Hemoglobin 29.6 pg (28.0-32.0); Mean Corpuscular Hgb Conc. 30.6 g/dL (32.0-36.0); Mean Corpuscular Volume 96.8 fL (80.0-100.0); Monocytes # (auto) 1.1 10 ^3/uL (0-1.3); Monocytes % (auto) 11.9 % (0.0-12.0); Neutrophils % (auto) 73.6 % (37.0-80.0); Nucleated Red Blood Cells % 0.1 %; Red Blood Cells 4.05 10^6/uL (4.5-5.90); Red Cell Distribution Width 18.5 % (11.8-14.3); White Blood Cell 9.5 10^3/uL (4.4-10.8)
[2021-07-09] MEDS ORDERED: MORPHINE SULFATE INJECTION 2 MG/ML SYRG IV PRN (17:00)
[2021-07-09] MEDS ORDERED: LORazepam 2MG/ML-1ML VIAL IV PRN (17:00)
[2021-07-09] MEDS ORDERED: LORazepam 2MG/ML-1ML VIAL IV ONE (17:00)
[2021-07-09] MEDS ORDERED: MORPHINE SULFATE INJECTION 2 MG/ML SYRG IM ONE (17:00)
[2021-07-09 19:07] LABS: Urine Bacteria NONE SEEN /hpf (None Seen); Urine Blood 3+ /uL (Negative); Urine Mucus FEW (None Seen); Urine WBC 5 /hpf (0 - 3)
== END 2021-07-09 23:53 | DRG 130 ==
LOC: ER 14:59 → TELE 21:10 → TELE-WESTW 06-28 03:20 → ICU WEST 07-01 12:30
PROVIDERS: ADMIT Nurse Practitioner; ATTEND Internal Medicine
PROC: 5A09357 Assistance with Respiratory Ventilation, Less than 24 Consecutive Hours, Continuous Positive Airway Pressure (ICD-10-PCS; 2021-06-28)
PROC: 5A09357 Assistance with Respiratory Ventilation, Less than 24 Consecutive Hours, Continuous Positive Airway Pressure (ICD-10-PCS; 2021-06-30)
PROC: 5A1955Z Respiratory Ventilation, Greater than 96 Consecutive Hours (ICD-10-PCS; principal; 2021-07-01)
PROC: 0BH17EZ Insertion of Endotracheal Airway into Trachea, Via Natural or Artificial Opening (ICD-10-PCS; 2021-07-01)
PROC: 5A09357 Assistance with Respiratory Ventilation, Less than 24 Consecutive Hours, Continuous Positive Airway Pressure (ICD-10-PCS; 2021-07-01)
PROC: 02HV33Z Insertion of Infusion Device into Superior Vena Cava, Percutaneous Approach (ICD-10-PCS; 2021-07-02)
PROC: B548ZZA Ultrasonography of Superior Vena Cava, Guidance (ICD-10-PCS; 2021-07-02)
PROC: 06HM33Z Insertion of Infusion Device into Right Femoral Vein, Percutaneous Approach (ICD-10-PCS; 2021-07-09)
DX: I26.99 Other pulmonary embolism without acute cor pulmonale (principal); G93.6 Cerebral edema; J81.0 Acute pulmonary edema; G93.40 Encephalopathy, unspecified; I60.9 Nontraumatic subarachnoid hemorrhage, unspecified; I61.9 Nontraumatic intracerebral hemorrhage, unspecified; G93.5 Compression of brain; I21.A1 Myocardial infarction type 2; E43 Unspecified severe protein-calorie malnutrition; K92.2 Gastrointestinal hemorrhage, unspecified; J96.02 Acute respiratory failure with hypercapnia; J96.01 Acute respiratory failure with hypoxia; N17.9 Acute kidney failure, unspecified; J18.9 Pneumonia, unspecified organism; E87.0 Hyperosmolality and hypernatremia; I87.2 Venous insufficiency (chronic) (peripheral); E55.9 Vitamin D deficiency, unspecified; Z20.822 Contact with and (suspected) exposure to COVID-19; R73.9 Hyperglycemia, unspecified; R73.03 Prediabetes; E66.2 Morbid (severe) obesity with alveolar hypoventilation; Z68.43 Body mass index [BMI] 50.0-59.9, adult; J43.9 Emphysema, unspecified; Z66 Do not resuscitate; Z80.1 Family history of malignant neoplasm of trachea, bronchus and lung; Z82.49 Family history of ischemic heart disease and other diseases of the circulatory system; Z86.711 Personal history of pulmonary embolism; Z99.11 Dependence on respirator [ventilator] status
CPT/HCPCS: 36415; 36569; 36600; 70450; 71045; 71275; 76700; 80048; 80053; 80061; 81001; 82040; 82150; 82248; 82306; 82565; 82805; 82962; 82977; 83036; 83605; 83615; 83690; 83735; 83880; 83930; 83935; 84100; 84295; 84443; 84484; 85025; 85379; 85610; 85730; 86850; 86900; 86901; 87040; 87070; 87077; 87086; 87205; 87426; 93005; 93306; 93925; 93970; 94002; 94003; 94640; 94660; 95819; 96372; 96374; 99291; A4618; C9113; G0378; J0330; J1956; J2250; J2405; J2704; J3480; J7060